=== PATIENT | male | born 1995 | race Caucasian/White ===

== ENCOUNTER 2019-11-30 19:19 | Emergency (ER) | payer OTHER ==
[~2019-11-30] VITALS: Ht 175.3 cm; Wt 108.9 kg
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
[2019-11-30] MEDS ORDERED: IBUPROFEN 400 MG TABLET ONE (19:42)
--- NOTE | 2019-11-30 19:48 | NUR ---
PT MEDICATED, AWAITING XRAY
--- NOTE | 2019-11-30 19:56 | NUR ---
RADIOLOGY AT BEDSIDE
[2019-11-30] MEDS ORDERED: HYDROCODONE/APAP 5/325MG TABLET PO ONE (20:00)
[2019-11-30] MEDS ORDERED: IBUPROFEN 400 MG TABLET PO ONE (20:00)
--- NOTE | 2019-11-30 20:23 | NUR ---
Patient discharged to home in stable condition. Written and verbal after care instructions given. Patient verbalizes understanding of instruction and RX. Pt ambulated with steady gait. vss.
[2019-11-30 20:24] VITALS: BP 137/83
== END 2019-11-30 20:25 | disposition home or self-care (01) ==
LOC: ER 19:19
DX: S42.002A Fracture of unspecified part of left clavicle, initial encounter for closed fracture (principal); V11.4XXA Pedal cycle driver injured in collision with other pedal cycle in traffic accident, initial encounter; Y93.I9 Activity, other involving external motion; Y92.89 Other specified places as the place of occurrence of the external cause; Y99.8 Other external cause status
CPT/HCPCS: 73000-TC; 73030-TC